=== PATIENT | male | born 1940 | race Caucasian/White ===

== ENCOUNTER 2019-10-25 01:36 | Day surgery (SDC) | payer MEDICARE, SELFPAY ==
[2019-10-19 14:43] VITALS: BMI 33.2
[2019-10-25 10:05] VITALS: BP 159/70; PULSE 74; RESP 18; TEMP 36.2; O2SAT 100; BMI 33.1
[2019-10-25] MEDS: LACTATED RINGERS 1,000 ML 150 ML IV CONT (10:13)
[2019-10-25] MEDS: AMPICILLIN 2 GM/NS 100 ML 2 GM/100 ML BAG IVPB (10:16)
--- NOTE | 2019-10-25 10:18 | PM.HPGS ---
History of Present Illness History of Present Illness Consent: Risks, benefits, and alternatives have been discussed and questions answered. Patient agrees to proceed with procedure. Chief complaint: Neoplasm Screening, History of Polyps Narrative: Deejay Hunt is a 78 year old male with history of colon polyps PMFSH Family History Family History Father Family history of lung cancer Mother Family history of malignant neoplasm of esophagus Family history of cardiovascular disease, Onset Age: 75 Family history of malignant neoplasm, Onset Age: 75 Sibling Family history of heart disease in male family member before age 55 Family history of cardiovascular disease Social History Social History Smoking status: Never smoker Second hand tobacco smoke exposure: No Alcohol intake: current Gender identity (if verbalized by the patient): Male Meds Home Medications and Allergies Home Medications Medication Instructions Recorded Confirmed Type atorvastatin 40 mg tablet 40 mg PO DAILY 08/24/19 10/19/19 History fluticasone propionate 50 2 spray NASAL DAILY 08/24/19 10/19/19 History mcg/actuation nasal spray,suspension omega-3 fatty acids 1,000 mg 1,000 mg PO BID 08/24/19 10/19/19 History capsule tramadol 50 mg tablet 50 mg PO Q8H PRN tablet 08/24/19 10/19/19 History losartan 100 mg PO DAILY 10/19/19 10/19/19 History metoprolol succinate 50 mg PO DAILY 10/19/19 10/19/19 History Allergies Allergy/AdvReac Type Severity Reaction Status Date / Time guaifenesin Allergy Unknown Hallucinati Verified 10/25/19 10:04 ng Vital Signs Vital Signs - 24 hr 10/25/19 10:05 Temperature 36.2 C L Pulse Rate 74 Respiratory Rate 18 Blood Pressure 159/70 H Pulse Oximetry 100 Exam Resp: Auscultation: clear to auscultation bilaterally Cardio: Rate: regular rate Rhythm: regular rhythm GI: GI Palp: Yes Soft to palpation and No Tenderness to palpation present (GI) Assessment and Plan Assessment and plan (1) Personal history of colonic polyps: Code(s): Z86.010 - Personal history of colonic polyps Status: Acute Assessment and Plan: Colonoscopy with possible biopsy or polypectomy or cautery or injection of substances.
--- NOTE | 2019-10-25 10:22 | WPDANESEPPF ---
Anes - Initial Pre Proc Eval Procedure: Operation Date: 10/25/19 11:00 Proposed Procedures p Screening Colonoscopy - Patel Malloy MD Date/Time: 10/25/19 10:22 Surgeon: Patel Malloy MD Pre Op Diagnosis: Neoplasm Screening, History of Polyps Patient Data Age: 78 Gender: M Height: 5 ft 11 in Weight: 107.7 kg Last Vital Signs Temp 36.2 C L 10/25/19 10:05 Pulse 74 10/25/19 10:05 Resp 18 10/25/19 10:05 BP 159/70 H 10/25/19 10:05 Pulse Ox 100 10/25/19 10:05 Allergies Allergy/AdvReac Type Severity Reaction Status Date / Time guaifenesin Allergy Unknown Hallucinati Verified 10/25/19 10:04 ng Home Medications Medication Instructions Recorded Confirmed Type atorvastatin 40 mg tablet 40 mg PO DAILY 08/24/19 10/25/19 History fluticasone propionate 50 2 spray NASAL DAILY 08/24/19 10/25/19 History mcg/actuation nasal spray,suspension omega-3 fatty acids 1,000 mg 1,000 mg PO BID 08/24/19 10/25/19 History capsule tramadol 50 mg tablet 50 mg PO Q8H PRN tablet 08/24/19 10/19/19 History losartan 100 mg PO DAILY 10/19/19 10/25/19 History metoprolol succinate 50 mg PO DAILY 10/19/19 10/25/19 History Patient hx anesthesia problems: none Family hx anesthesia problems: none PMFSH Past Medical History Medical History Hypertension ADELAIDE (obstructive sleep apnea) Family History Family History Father Family history of lung cancer Mother Family history of malignant neoplasm of esophagus Family history of cardiovascular disease, Onset Age: 75 Family history of malignant neoplasm, Onset Age: 75 Sibling Family history of heart disease in male family member before age 55 Family history of cardiovascular disease Social History Social History Smoking status: Never smoker Second hand tobacco smoke exposure: No Alcohol intake: current Gender identity (if verbalized by the patient): Male Anes - Eval Final PreProcedure Day of Procedure 10/25/19 10:22 Patient weight: obese Heart: regular rate and rhythm Lungs: clear to auscultation Airway: Mallampati scale class II Neurological: alert and oriented Last oral intake: >/= 8 hours ASA classification: III Emergent: no Anesthetic plan: proceed Anesthesia type and monitoring: general GIVS and standard monitoring Informed Consent: The patient's anesthetic plan and its attendant risks and benefits were discussed with the patient/family/POA. Questions were solicited and answers provided to the satisfaction of the patient/family/POA.
[2019-10-25 11:18] VITALS: BP 121/67; PULSE 64; RESP 24; O2SAT 98
[2019-10-25 11:28] VITALS: BP 144/68; PULSE 67; RESP 20; O2SAT 98
[2019-10-25 11:38] VITALS: BP 166/77; PULSE 58; RESP 24; O2SAT 100
== END 2019-10-25 11:55 | disposition home or self-care (01) ==
PROVIDERS: PCP Internal Medicine; Visit Provider Internal Medicine Gastroenterology
PROC: 0DJD8ZZ Inspection of Lower Intestinal Tract, Via Natural or Artificial Opening Endoscopic (ICD-10-PCS; CPT 45378; principal; 2019-10-25 11:00)
DX: Z12.11 Encounter for screening for malignant neoplasm of colon (principal); K57.30 Diverticulosis of large intestine without perforation or abscess without bleeding; Z86.010 Personal history of colon polyps; I10 Essential (primary) hypertension; G47.33 Obstructive sleep apnea (adult) (pediatric); E66.9 Obesity, unspecified; Z68.33 Body mass index [BMI] 33.0-33.9, adult
CPT/HCPCS: G0105; J0290; J2704; J7120

== ENCOUNTER 2020-08-01 06:54 | Outpatient (NON) | payer MEDICARE, SELFPAY ==
[2020-08-01 22:31] LABS: SARS-CoV-2 RNA PCR Negative
== END 2020-08-01 06:55 ==
LOC: ANHCOVIDDT 06:55
PROVIDERS: PCP Internal Medicine; Visit Provider Internal Medicine
DX: Z20.828 Contact with and (suspected) exposure to other viral communicable diseases (principal); R09.89 Other specified symptoms and signs involving the circulatory and respiratory systems
CPT/HCPCS: 87635; C9803; U0003

== ENCOUNTER 2022-01-22 14:52 | Outpatient (CLI) | payer MEDICARE, SELFPAY ==
--- NOTE | ~2022-01-22 | US_ITS ---
EXAMINATION: US carotid duplex BI DATE: 01/22/2022 15:54 INDICATION: Dizziness and giddiness TECHNIQUE: Grayscale, color Doppler, and pulsed Doppler images of the cervical carotid arteries were obtained. The degree of vessel stenosis is placed in one of the following categories: normal, <50%, 5 0-69%, >=70% but less than near-occlusion, near-occlusion, or total occlusion. Note that percent sten osis relative to normal distal artery lumen diameter is indirectly measured from velocity measurement s as described by Yuriy, et al. Radiology 2003; 229:340-346. Notes: Normal: Peak systolic velocity <125 centimeters/sec and no plaque <50%. Peak systolic velocity <125 ( EDV <40; ICA/CCA PSV ratio <2.0; used these factors only a tandem lesions or low cardiac output or co ntralateral disease) 50-69 %: PSV 125-230 (EDV 40-100; ratio 2-4) >= 70% but less than near occlusion: PSV greater than 230 (EDV > 100; ratio> 4.0) Near Occlusion: PSV that is variable; markedly narrowed lumen Occlusion: Absent flow on color/spectral Doppler and no lumen on heller scale. COMPARISON: None. FINDINGS: RIGHT: The right common carotid artery (CCA) peak systolic velocity (PSV) is 119 cm/s. The right internal ca rotid artery (ICA) PSV is 142 cm/s. The right ICA end-diastolic velocity (EDV) is 38 cm/s. The right ICA/CCA PSV ratio is 1.2. The external carotid artery (ECA) PSV is 149 cm/s. There is antegrade flow in the right vertebral artery. LEFT: The left CCA PSV is 113 cm/s. The left ICA PSV is 134 cm/s. The left ICA EDV is 27 cm/s. The left ICA /CCA PSV ratio is 1.2. The ECA PSV is 103 cm/s. There is antegrade flow in the left vertebral artery . IMPRESSION: 1. 50-69% stenosis in the right internal carotid artery by sonographic criteria. 2. 50-69% stenosis in the left internal carotid artery by sonographic criteria. Reviewed, dictated and finalized at location B. IMPRESSION: 1. 50-69% stenosis in the right internal carotid artery by sonographic criteria . 2. 50-69% stenosis in the left internal carotid artery by sonographic criteria.
== END 2022-01-22 14:53 | disposition home or self-care (01) ==
LOC: ANHIMG 14:54
PROVIDERS: PCP Internal Medicine; Visit Provider Nurse Practitioner
DX: R42 Dizziness and giddiness (principal); I65.23 Occlusion and stenosis of bilateral carotid arteries
CPT/HCPCS: 93880

== ENCOUNTER → 2023-02-06 14:00 | Outpatient (CLI) | payer MEDICARE, SELFPAY ==
--- NOTE | ~2023-02-06 | MR_ITS ---
EXAMINATION: MR knee RT wo con DATE: 02/06/2023 14:43 INDICATION: M25.561 - Pain in right knee TECHNIQUE: Magnetic resonance imaging (MRI) of the right knee was performed without intravenous contr ast. Sequences included axial PD-weighted FS FSE, coronal PD-weighted FSE and PD-weighted FS FSE, sag ittal PD-weighted FSE, and sagittal T2-weighted FS FSE. COMPARISON: 01/23/2022, images only FINDINGS: Medial compartment: Small vertically oriented tear in the meniscal body. Small radial apical tear at the junction of the body and posterior horn. Severe diffuse cartilage thinning. Mild osteophytosis. Lateral compartment: Minimal meniscal blunting at the apex of the meniscal body. Moderate diffuse cartilage thinning. Mild osteophytosis. Patellofemoral compartment: Moderate diffuse cartilage thinning. Mild osteophytosis. Moderate quadriceps enthesopathy. Intact ret inacula. Ligaments and tendons: Mild chronic low signal thickening of the proximal MCL. The ACL, PCL, and LCL are intact. Remaining f lexor and extensor tendons are intact. Fluid: Small volume joint fluid. Small Roman's cyst. Scattered subcutaneous edema. Osseous/other: No suspicious focal or diffuse marrow signal. IMPRESSION: 1. Small vertically oriented tear of the meniscal body. Small apical tear at the junction of the body and posterior horn of the medial meniscus. 2. Small apical tear of the body of the lateral meniscus. 3. 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 4. Mild chronic partial tear of the MCL. 5. Small Roman's cyst. Reviewed, dictated and finalized at location K. IMPRESSION: 1. Small vertically oriented tear of the meniscal body. Small apical tear at th e junction of the body and posterior horn of the medial meniscus. 2. Small apical tear of the body of the lateral meniscus. 3. 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 4. Mild chronic partial tear of the MCL. 5. Small Roman's cyst.
== END ==
PROVIDERS: PCP Nurse Practitioner; Visit Provider Nurse Practitioner
DX: M17.11 Unilateral primary osteoarthritis, right knee (principal); M71.21 Synovial cyst of popliteal space [Baker], right knee; S83.411A Sprain of medial collateral ligament of right knee, initial encounter; X58.XXXA Exposure to other specified factors, initial encounter
CPT/HCPCS: 73721

== ENCOUNTER 2023-04-03 13:27 | Emergency (ER) | payer MEDICARE, SELFPAY ==
[2023-04-03 13:35] VITALS: BP 136/52; PULSE 75; RESP 18; TEMP 36.6; O2SAT 100
--- NOTE | 2023-04-03 13:37 | ED.LOWEXIN ---
HPI - Extremity Injury (Lower) General Chief Complaint: Skin/Abscess/Foreign Body Stated Complaint: toe on right foot painful Time Seen by Provider: 04/03/23 13:37 Source: patient Mode of arrival: ambulatory Limitations: no limitations History of Present Illness HPI Narrative: Mr. Hunt is an 82-year-old male patient presenting to the clinic today with complaints of right toe possible infection. He reports that notice a blister on his 3rd toe last week and put a Band-Aid over the toe and now all he took the Band-Aid off yesterday and is red and swollen. Denies any itching -mild discomfort. Related Data Home Medications Medication Instructions Recorded Confirmed omega-3 fatty acids 1,000 mg 1,000 mg PO BID 08/24/19 04/03/23 capsule (Fish Oil Concentrate) [id number] tablet 1 tablet PO DAILY 01/14/22 04/03/23 Allergies Allergy/AdvReac Type Severity Reaction Status Date / Time guaifenesin Allergy Intermediate Hallucinati Verified 04/03/23 13:51 ng Review of Systems Review of Systems: Pertinent positives per HPI. Patient denies any fever, chills, rash, headache, visual changes, dizziness, cough, runny nose, sore throat, shortness of breath, chest pain, palpitations, nausea, vomiting, diarrhea, constipation, abdominal pain, or any urinary issues. [facility] Past Medical History Medical History Arthritis Arthritis of right knee BPPV (benign paroxysmal positional vertigo) COVID-19 Hypertension ADELAIDE (obstructive sleep apnea) Rash Surgical History Surgical History History of left knee replacement History of left knee surgery Left TKA History of prostate surgery Family History Family History Father Family history of lung cancer Cancer Mother Family history of malignant neoplasm of esophagus Family history of cardiovascular disease, Onset Age: 75 Family history of malignant neoplasm, Onset Age: 75 Cancer Heart disease Sibling Family history of heart disease in male family member before age 55 Family history of cardiovascular disease Asthma Cancer Other Diabetes mellitus Heart disease Social History Social History Smoking status: Never smoker Second hand tobacco smoke exposure: No Alcohol intake: current Drinks per week: 12 Alcohol use details: liquor Substance use: never Substance use type: does not use Lack of Transportation: No Lack of Food: Never True Current Housing: I Have Housing Concerned About Future Housing: No Difficulty Paying Gas/Electric Bills: No Difficulty Paying for Meds: No Currently Unemployed: No Education: Master's Degree or Higher Difficulty w/ Childcare or Family Care: No Living arrangements: with family Occupation/Education: retired Gender identity (if verbalized by the patient): Male Sexual Orientation (if Verbalized by the Patient): Straight or Heterosexual Comments At the time of my signature, I reviewed and agree with the nursing past medical, surgical, social, and family history. There is no relevant family history pertinent to the patient complaint. Exam Narrative: General: Well-developed, well nourished, in no apparent distress Head: Normocephalic, atraumatic. Cardio: Regular rate and rhythm, s1 and s2 normal, no murmur appreciated. Resp: Clear to auscultation bilaterally, no rhonchi, rales, wheezing or rubs. Integumentary: [place], warm, and dry, redness and swelling noted over the mid 3rd toe of the right foot- mild tenderness to palpation with no induration Course Course Emergency Course: Portions of this record may have been created with voice recognition software. Level of Care: Express Care Visit Vital Signs Vital signs: Vital sig
== END 2023-04-03 14:00 | disposition home or self-care (01) ==
PROVIDERS: Emergency Provider Nurse Practitioner Family; PCP Family Medicine
DX: L08.9 Local infection of the skin and subcutaneous tissue, unspecified (principal); M17.11 Unilateral primary osteoarthritis, right knee; I10 Essential (primary) hypertension; Z96.652 Presence of left artificial knee joint
CPT/HCPCS: 99213; G0463

== ENCOUNTER 2023-08-28 07:49 | Outpatient (CLI) | payer MEDICARE, SELFPAY | END 2023-08-28 07:50 | disposition home or self-care (01) | LOC: ANHAUDIO 07:50 | PROVIDERS: PCP Family Medicine; Visit Provider Otolaryngology | DX: H90.3 Sensorineural hearing loss, bilateral (principal); H81.10 Benign paroxysmal vertigo, unspecified ear | CPT/HCPCS: 92557; 92567 ==

== ENCOUNTER 2025-07-16 09:35 | Emergency (ER) | payer MEDICARE, SELFPAY ==
--- NOTE | 2025-07-16 09:40 | ED.URI ---
HPI - URI/Sore Throat General Chief Complaint: Upper Respiratory Infection Stated Complaint: flu like symptoms Time Seen by Provider: 07/16/25 09:40 Source: patient Mode of arrival: ambulatory Limitations: no limitations History of Present Illness HPI Narrative: patient is an 84 year old male that presents with 8 days of congestion, cough, ear fullness, intermittent dizziness, fever and fatigue. Patient has tried Mucinex and did take a Z-Asher from [place] with no relief. Patient states symptoms were getting better on Thursday but worsened yesterday causing him to lay in bed all day. Related Data Home Medications ?Medication ?Instructions ?Recorded ?Confirmed ?Last Taken ?Type omega-3 fatty acids 1,000 mg 1,000 mg PO DAILY 08/24/19 07/16/25 10/23/19 History capsule (Fish Oil Concentrate) psyllium husk 0.52 gram capsule 0.52 g PO DAILY 06/25/23 07/16/25 Unknown History (Daily Fiber) [id number]-[id number] tablet 1 tablet PO DAILY 01/06/24 07/16/25 Unknown History Allergies Allergy/AdvReac Type Severity Reaction Status Date / Time guaifenesin Allergy Intermediate Hallucinati Verified 07/16/25 09:48 ng Review of Systems Review of Systems: All systems reviewed & are unremarkable except as noted in HPI and below Constitutional: Constitutional: Denies chills, Denies fatigue, Reports fever(s), Denies headache(s), Denies malaise and Denies weakness Eyes: Eyes: Denies blurry vision, Denies itchy eyes and Denies loss of vision ENT: Reports otalgia, Denies headache(s), Reports nasal congestion, Reports sinus pain, Reports sinus pressure and Denies sore throat Cardiovascular: Cardiovascular: Denies chest pain, Denies irregular heart rhythm and Denies dyspnea Respiratory: Respiratory: Reports cough and Denies dyspnea Gastrointestinal: Gastrointestinal: Denies abdominal pain, Denies diarrhea, Denies nausea and Denies vomiting Musculoskeletal: Musculoskeletal: Denies back pain, Denies myalgias and Denies arthralgias Integumentary/Breasts: Skin/Breast: Denies pruritus and Denies rash Neurologic: Denies headache(s), Denies loss of vision and Denies weakness Psychiatric: Psychiatric: Reports no additional psychiatric complaints Endocrine: Endocrine: Denies fatigue Allergic/Immunologic: Allergic/Immunologic: Denies itchy eyes PMFSH Past Medical History Medical History Arthritis of right knee Arthritis COVID-19 BPPV (benign paroxysmal positional vertigo) Rash Hypertension ADELAIDE (obstructive sleep apnea) Surgical History Surgical History History of left knee surgery Left TKA History of left knee replacement History of prostate surgery Family History Family History Father Family history of lung cancer Cancer Mother Family history of malignant neoplasm of esophagus Family history of cardiovascular disease, Onset Age: 75 Family history of malignant neoplasm, Onset Age: 75 Cancer Heart disease Sibling Family history of heart disease in male family member before age 55 Family history of cardiovascular disease Asthma Cancer Other Diabetes mellitus Heart disease Social History Social History Social History: Caffeine-occasionally Smoking status: Never smoker Second hand tobacco smoke exposure: No Alcohol intake: current Drinks per week: 5 Alcohol use details: DRINKS Substance use: never Substance use type: does not use Lack of Transportation: No Lack of Food: Never True Current Housing: I Have Housing Concerned About Future Housing: No Difficulty Paying Gas/Electric Bills: No Difficulty Paying for Meds: No Currently Unemployed: No Education: Master's Degree or Higher Difficulty w/ Childcare or Family Care: No Living arrangements: with family Occupation/Education: retired Gender identity (if verbalized by the patient): Male Sexual Orientation (if Verbalized by the Patient): Straight or Heterosexual Spiritual care concerns: No Comments At time of signature, agree with nursing past medical, surgical, social and family history. There is no relevant family history pertinent to the presenting complaint. Exam Const: General: cooperative, healthy appearing, comfortable, no acute distress and well nourished Nutritional Appearance: well nourished Orientation/consciousness: patient oriented x3 Limitations: no limitations HENMT: Head: normal to inspection, normocephalic and atraumatic Ears: hearing grossly normal bilaterally, external ears normal, TM's normal bilaterally, EAC's normal and no periauricular adenopathy Face/Nose/Sinus: Normal external nose present, Abnormal mucous membranes and turbinates present erythematous bilateral and diffuse, normal facial exam, face symmetric and Facial tenderness on exam of face and sinuses Face and sinus: normal facial exam and face symmetric Mouth: Yes Normal oral and palatal mucosa present, Yes lip normal, Yes tongue normal, Yes Normal salivary glands and ducts present, Yes oropharynx normal and Yes moist mucous membranes Teeth and gingiva: dentition normal Throat: posterior oropharynx normal, tonsils normal and uvula midline Eyes: General: appearance normal, both eyes and all related structures Alignment and Position: alignment normal and position normal Periorbital: periorbital findings normal Eyelids: eyelids normal Pupils: Equal, round and reactive pupils present Neck: Neck: normal visual inspection, full ROM, no lymphadenopathy and supple Chest: Chest palpation & inspection: normal inspection of the chest and normal palpation of entire chest wall Resp: Effort & Inspection: normal respiratory effort and able to speak in complete sentences Auscultation: clear to auscultation bilaterally, no crackles, no rales, no rhonchi and no wheezes Cardio: Rate: regular rate Rhythm: regular rhythm Heart sounds: S1 normal heart sound present and S2 normal heart sound present GI: Inspection: normal to inspection Skin: General skin exam: normal color and no rashes or lesions noted Neuro: General: patient oriented x3 and moves all extremities Cranial nerves: Yes Equal, round and reactive pupils present Speech: normal speech Gait exam (Neuro): Normal gait present Extrem: General: normal to inspection, full ROM and no edema Psych: Appearance: grossly normal and well kempt Mental Status: mental status grossly normal Speech and movement: Normal speech and movement present Affect: normal affect Attitude: cooperative Thought process: Normal thought process present Course Course Emergency Course: Discharge instructions reviewed with patient, as well as provided in writing per nursing staff. The instructions also include specific and strict return/GO TO THE ER as well as f/u information. All questions have been answered, and the patient deny any further questions with discharge and discharge plan. Portions of this record may have been created with voice recognition software Level of Care: Express Care Visit Vital Signs Vital signs: Reviewed MDM - URI/Sore Throat MDM Narrative Medical decision making narrative: based on exam and length of symptoms will treat with antibiotics, steroids and Tessalon Perles for cough. Consistent with sinusitis Pt well hydrated appearing, in no respiratory distress, hemodynamically stable. Recommend supportive care. The patient is stable at time of discharge the clinical impression was discussed and the patient was given the opportunity to ask questions, which were addressed as completely as possible given the information available at present. Anticipatory guidance and return to care precautions were discussed and the importance of primary care follow-up was stressed and encouraged. The patient voiced understanding of the plan, indications to return, and the need for follow-up. Exam findings show no acute concerns or changes Patient is appropriate for outpatient treatment and follow-up. Differential diagnosis considered: Jang virus, strep pharyngitis, allergic rhinitis, upper respiratory tract infection, sinusitis, rhinosinusitis, nasopharyngitis. viral pharyngitis, otitis media, otitis externa, otitis effusion, foreign body, cerumen impaction, viral syndrome, and influenza.? Medical Records Attestation: I reviewed the patient's medical records. Discharge Plan Discharge Clinical Impression: Sinusitis, Upper respiratory infection with cough and congestion Patient Disposition: Home Condition: Stable Instructions: Upper Respiratory Infection (ED) Additional Instructions: Take antibiotic as prescribed. Take steroids per package instructions, mo. Use Tessalon Perles as needed for cough. Other symptomatic treatments include: -Alternate Tylenol and Motrin per package directions for fever or pain: Tylenol 650-1000mg by mouth every 4-6 hours. Do not exceed 4000mg in 24 hours. Advil (Ibuprofen) 600 mg by mouth every 6 hours. Do not exceed 2400mg in 24 hours. 8 AM: Tylenol 11 AM: Ibuprofen 2 PM: Tylenol 5 PM: Ibuprofen 8 PM: Tylenol 11 PM: Ibuprofen 2 AM: Tylenol 5 AM: Ibuprofen -Antihistamine medication such as Benadryl at night and Zyrtec/Claritin/Larisa during the day can help improve symptoms. -Use Flonase twice a day for 5 days then daily to help reduce the inflammation and dry up your sinuses. -You can also use Sudafed or Mucinex. Be sure to drink plenty of water with these medications at least 8 ounces with every dose and it is important to drink 8 to 10 glasses of water per day. Water is a natural decongestant -Eat and drink things that are easy to swallow, like tea or soup, or popsicles. -Oral rinses such as: Salt water gargles and/or may use topical anesthetic (eg. Chloraseptic spray) or lozenges to relieve dryness or throat pain). -Frequent hand washing or hand print line supervisor is one of the best ways to prevent spread of infection. -Using a vaporizer or humidifier at night will also help thin secretions and help with coughing up phlegm. Call your Primary Care Doctor and make a follow-up appointment in 3 days. If your cough worsens, you develop a fever greater than 103, you develop shaking chills, a fast heartbeat, trouble breathing and/or feel you are are breathing much faster than usual, call your Primary Care Doctor or go to the ER. Patient Language: Tamazight Prescriptions: New benzonatate 100 mg capsule 100 mg PO BID PRN (Reason: cough) Qty: 14 0RF amoxicillin-pot clavulanate 875-125 mg tablet 1 tablet PO Q12H 10 Days Qty: 20 0RF methylprednisolone [Medrol (Asher)] 4 mg tablets,dose pack See Rx Instructions .ROUTE .COMPLEX Qty: 21 0RF Rx Instructions: orally per package directions No Action psyllium husk [Daily Fiber] 0.52 gram capsule 0.52 g PO DAILY omega-3 fatty acids [Fish Oil Concentrate] 1,000 mg capsule 1,000 mg PO DAILY Wegovy 1.7 mg/0.75 mL pen injector 1.7 mg subcut WEEKLY Qty: 3 0RF Centrum Silver Tablet 1 tablet PO DAILY atorvastatin 40 mg tablet See Rx Instructions .ROUTE .COMPLEX Qty: 90 1RF Dose Instruction: TAKE 1 TABLET DAILY Rx Instructions: TAKE 1 TABLET DAILY fluticasone propionate 50 mcg/actuation spray,suspension 2 spray intranasal DAILY Qty: 48 1RF Rx Instructions: administer into each nostril ropinirole 0.25 mg tablet 0.25 mg PO BID Qty: 90 1RF Wegovy 0.5 mg/0.5 mL pen injector 0.5 mg subcut WEEKLY Qty: 2 0RF Rx Instructions: administer weeks 5 through 8 of therapy amlodipine 10 mg tablet See Rx Instructions .ROUTE .COMPLEX Qty: 90 1RF Dose Instruction: TAKE 1 TABLET DAILY Rx Instructions: TAKE 1 TABLET DAILY olmesartan 20 mg tablet See Rx Instructions .ROUTE .COMPLEX Qty: 90 1RF Dose Instruction: TAKE 1 TABLET DAILY Rx Instructions: TAKE 1 TABLET DAILY Follow-up/Referrals: Jason Lea MD [Primary Care Provider, Family Practice] - 3 Days Time of Disposition: 10:34
[2025-07-16 09:50] VITALS: BP 156/59; PULSE 83; RESP 16; TEMP 36.1; O2SAT 100
== END 2025-07-16 10:45 | disposition home or self-care (01) ==
PROVIDERS: Emergency Provider Nurse Practitioner Family; PCP Family Medicine
DX: J32.9 Chronic sinusitis, unspecified (principal); J06.9 Acute upper respiratory infection, unspecified; R05.9 Cough, unspecified; I10 Essential (primary) hypertension; M17.11 Unilateral primary osteoarthritis, right knee; Z86.16 Personal history of COVID-19; Z96.652 Presence of left artificial knee joint
CPT/HCPCS: 99213; G0463